=== PATIENT | male | born 1955 | race Caucasian/White ===

== ENCOUNTER 2017-04-18 21:33 | Emergency (ER) | payer OTHER ==
[~2017-04-18 21:33] MED LIST: CIPRO PO; FLOMAX0.4 M1 DOB; PERCOCET 5-3251 TAB PO; PHENERGAN PO; PHENERGAN25 MG PO; TYLENOL #3 PO; VERAPAMIL HCL240 MG PO; VOLTAREN50 MG PO
[2017-04-18] MEDS ORDERED: LIPITOR20 MG (22:00)
== END 2017-04-18 23:31 | disposition home or self-care (01) ==
LOC: SED 21:33
DX: S61.452A Open bite of left hand, initial encounter (principal); F17.210 Nicotine dependence, cigarettes, uncomplicated; Z88.0 Allergy status to penicillin; Z79.899 Other long term (current) drug therapy; W54.0XXA Bitten by dog, initial encounter; Y92.009 Unspecified place in unspecified non-institutional (private) residence as the place of occurrence of the external cause
CPT/HCPCS: 12001; 90715; 99283